=== PATIENT | male | born 1960 | race Two or more races ===

== ENCOUNTER 2020-03-22 08:07 | Outpatient (CLI) | payer OTHER ==
[~2020-03-22 08:07] MED LIST: CRESTOR10 MG; SKELAXIN800 MG PO; ZYRTEC10 MG PO
== END 2020-03-22 18:00 | disposition home or self-care (01) ==
LOC: LAB 08:07
DX: Z20.828 Contact with and (suspected) exposure to other viral communicable diseases (principal)

== ENCOUNTER 2020-11-08 12:29 | Outpatient (CLI) | payer OTHER | END 2020-11-08 15:00 | disposition home or self-care (01) | LOC: LAB 12:29 | PROVIDERS: ATTEND Emergency Medicine Pediatric Emergency Medicine | DX: Z03.818 Encounter for observation for suspected exposure to other biological agents ruled out (principal) ==

== ENCOUNTER → 2021-03-28 09:02 | Outpatient (CLI) | payer OTHER | END | disposition home or self-care (01) | LOC: LAB 09:02 | DX: Z03.818 Encounter for observation for suspected exposure to other biological agents ruled out (principal) ==